=== PATIENT | female | born 1965 | race Caucasian/White ===

== ENCOUNTER 2023-05-12 20:21 | Inpatient (IN) | payer MEDICARE, OTHER ==
[~2023-05-12] VITALS: Ht 160 cm; Wt 97.0 kg
[2023-05-12] MEDS ORDERED: ONDANSETRON 4 MG/2 ML (SDV) Z0FRAN IVP ONE ×2 (21:00→22:30)
[2023-05-12] MEDS ORDERED: NS IV 1000 ML 1,000 ML IV SCH (21:00)
[2023-05-12] MEDS ORDERED: CEFEPIME INJECTION 1,000 MG in NS (IVPB) 50 ML 50 ML IV ONE (21:00)
--- NOTE | 2023-05-12 21:00 | ED General ---
General Stated Complaint: BACK, HIP AND LEG PAIN LEFT SIDE Source of Information: Patient History of Present Illness Date Seen by Provider: May 12, 2023 Time Seen by Provider: 20:45 Initial Comments PT ARRIVES VIA POV FROM HOME PT WITH MULTIPLE COMPLAINTS PT FELL ON Sunday05/09/23, LANDING ON HER LEFT HIP AND BUTTOCK AREA--SHE MISSED A STEP AND FELL TO HER LEFT AND LANDED ON HER LEFT HIP/BUTTOCK AREA. SHE CONTINUES TO HAVE PAIN IN HER LEFT HIP, BUT IS ABLE TO WALK ON SUNDAY, SHE BEGAN HAVING NAUSEA/VOMITING/DIARRHEA--VOMITED X 2 YESTERDAY, NONE TODAY. DIARRHEA X 3 YESTERDAY, NONE TODAY. NO HEMATEMESIS OR COFFEE GROUND EMESIS. NO BLACK/BLOODY/TARRY STOOLS YESTERDAY, SHE BEGAN HAVING LOW ABDOMINAL PAIN RADIATING TO BOTH HIPS AND AROUND BOTH SIDES TO HER LOW BACK SHE DENIES ANY URINARY SYMPTOMS SHE DENIES ANY FEVER/SWEATS/CHILLS SHE HAS NOT TAKEN ANYTHING FOR PAIN SHE HAS NOT TAKEN ANY OF HER MEDICATIONS TODAY--STATES SHE "JUST DIDN'T" PT IS DIABETIC ON METFORMIN, HAS HTN, HYPOTHYROIDISM, PERIPHERAL NEUROPATHY, ASTHMA SHE HAS HISTORY OF THYROID CANCER AND MULTIPLE MYELOMA--BOTH DX AROUND THE SAME TIME IN 2016/2017--SHE HAD SURGERY, RADIATION AND CHEMO FOR BOTH. SHE IS NOT CURRENTLY RECEIVING ANY CANCER TREATMENT. SHE IS A FORMER SMOKER, FORMER ALCOHOLIC, DENIES DRUG USE PT JUST MOVED HERE THIS WEEK FROM [place] Allergies and Home Medications Allergies Coded Allergies: Penicillins (Verified Allergy, Unknown, 05/12/23) Patient Home Medication List Home Medication List Reviewed: Yes Review of Systems Review of Systems Constitutional: malaise EENTM: no symptoms reported Respiratory: no symptoms reported; No cough, No short of breath Cardiovascular: no symptoms reported Gastrointestinal: see HPI, abdominal pain, diarrhea, nausea, vomiting Genitourinary: no symptoms reported Musculoskeletal: see HPI, back pain, other (LEFT HIP PAIN ) Skin: no symptoms reported Psychiatric/Neurological: No Symptoms Reported Hematologic/Lymphatic: No Symptoms Reported Immunological/Allergic: no symptoms reported Past Cslkzti-Yvcdsc-Tetesj Hx Patient Social History Tobacco Use?: Yes Tobacco type used: Cigarettes Smoking Status: Former Smoker Substance use?: No Alcohol Use?: Yes Past Medical History Surgeries: Yes Adenoidectomy, Hysterectomy, Oophorectomy, Thyroidectomy, Tonsillectomy Respiratory: Yes Asthma Cardiac: Yes High Cholesterol, Hypertension Neurological: Yes Neuropathy 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 History: Hysterectomy Genitourinary: No Gastrointestinal: No Musculoskeletal: Yes (MULTIPLE MYELOMA) Endocrine: Yes (OBESITY; THYROID CANCER-NOW HYPOTHYROID) Hypothyroidsim, Diabetes, Non-Insulin dep HEENT: Yes (S/P TONSILLECTOMY) Cancer: Yes (MULTIPLE MYELOMA) Thyroid Did You Recieve Any Treatments: Yes What Type of Treatment Did You: Chemotherapy, Radiation, Surgical Intervention MULTIPLE MYLEOMA AND THYROID CANCER DX AT SAME TIME IN 2016/2017 SHE HAS HAD THYROIDECTOMY AND RIGHT 6TH RIB RESECTION SHE HAS HAD RADIATION AND CHEMO FOR BOTH Psychosocial: No Integumentary: No Blood Disorders: No Family Medical History SOCIAL HISTORY: -SMOKED 1 1/2 PPD, QUIT AGE 24 -[facility]--USED TO DRINK 1/2 GALLON A DAY, NOW "OCCASIONALLY" DRINKS -DRUGS--DENIES PAST SURGICAL HISTORY: -HYSTERECTOMY / BILATERAL SALPINGO-OOPHORECTOMY -THYROIDECTOMY -RIGHT 6TH RIB RESECTION -COLONOSCOPY 2017 -TONSILLECTOMY / ADENOIDECTOMY Physical Exam Vital Signs Vital Signs - First Documented 05/12/23 21:02 Temp 38.3 Pulse 113 Resp 18 B/P (MAP) 169/85 (113) Capillary Refill : Height, Weight, BMI Height: '" Weight: lbs. oz. kg; BMI Method: General Appearance: No Apparent Distress, WD/WN HEENT: PERRL/EOMI Neck: Normal Inspection Respiratory: Normal Breath Sounds, No Accessory Muscle Use, No Respiratory Distress Cardiovascular: Regular Rate, Rhythm, No Edema, No JVD, No Murmur, Normal Peripheral Pulses Gastrointestinal: Normal Bowel Sounds, Soft, Tenderness (SUPRAPUBIC TENDERNESS) Back: No CVA Tenderness, Other (DIFFUSE LOWER BACK TENDERNESS) Extremity: Normal Capillary Refill, No Calf Tenderness, No Pedal Edema, Other (LEFT HIP TENDERNESS AND BRUISING) Neurologic/Psychiatric: Alert, Oriented x3, No Motor/Sensory Deficits, Normal 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, 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 as 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 Skin: Normal Color, Warm/Dry Focused Exam Sepsis Stage: Sepsis Possible Source: GI Tract/Intra-Abdominal Lactate Level 05/12/23 20:54: Lactic Acid Level 2.00 Time of Focused Exam: 22:40 Respiratory: Normal Breath Sounds, No Accessory Muscle Use, No Respiratory Distress Cardiovascular: Regular Rate, Rhythm, No Murmur Capillary Refill: Less Than 3 Seconds Skin: normal color, warm/dry Lactic Acid Level Laboratory Tests Test 05/12/23 20:54 Lactic Acid Level 2.00 MMOL/L (0.50-2.00) Within 3hrs of presentation: Admin fluids, Admin ABX, Blood cultures prior to ABX's, Focus exam, Lactate level Progress/Results/Core Measures Suspected Sepsis SIRS Temperature: Pulse: Respiratory Rate: Laboratory Tests 05/12/23 20:54: White Blood Count 13.7H Blood Pressure / Mean: 05/12/23 20:54: Lactic Acid Level 2.00 Laboratory Tests 05/12/23 20:54: Creatinine 1.09, INR Comment 0.9, Platelet Count 250, Total Bilirubin 0.4 Results/Orders Lab Results Laboratory Tests Test 05/12/23 20:54 05/12/23 20:57 05/12/23 21:09 Range/Units White Blood Count 13.7 H 4.3-11.0 10^3/uL Red Blood Count 4.59 3.80-5.11 10^6/uL Hemoglobin 12.9 11.5-16.0 g/dL Hematocrit 40 35-52 % Mean Corpuscular Volume 87 80-99 fL Mean Corpuscular Hemoglobin 28 25-34 pg Mean Corpuscular Hemoglobin Concent 33 32-36 g/dL Red Cell Distribution Width 12.9 10.0-14.5 % Platelet Count 250 130-400 10^3/uL Mean Platelet Volume 11.4 9.0-12.2 fL Immature Granulocyte % (Auto) 0 % Neutrophils (%) (Auto) 73 42-75 % Lymphocytes (%) (Auto) 16 12-44 % Monocytes (%) (Auto) 8 0-12 % Eosinophils (%) (Auto) 2 0-10 % Basophils (%) (Auto) 1 0-10 % Neutrophils # (Auto) 10.0 H 1.8-7.8 10^3/uL Lymphocytes # (Auto) 2.2 1.0-4.0 10^3/uL Monocytes # (Auto) 1.2 H 0.0-1.0 10^3/uL Eosinophils # (Auto) 0.2 0.0-0.3 10^3/uL Basophils # (Auto) 0.1 0.0-0.1 10^3/uL Immature Granulocyte # (Auto) 0.1 0.0-0.1 10^3/uL Erythrocyte Sedimentation Rate 25 0-30 MM/HR Prothrombin Time 12.8 12.2-14.7 SEC INR Comment 0.9 0.8-1.4 Activated Partial Thromboplast Time 28 24-35 SEC Sodium Level 134 L 135-145 MMOL/L Potassium Level 3.9 3.6-5.0 MMOL/L Chloride Level 100 98-107 MMOL/L Carbon Dioxide Level 22 21-32 MMOL/L Anion Gap 12 5-14 MMOL/L Blood Urea Nitrogen 10 7-18 MG/DL Creatinine 1.09 0.60-1.30 MG/DL Estimat Glomerular Filtration Rate 59 BUN/Creatinine Ratio 9 Glucose Level 222 H 70-105 MG/DL Lactic Acid Level 2.00 0.50-2.00 MMOL/L Calcium Level 9.3 8.5-10.1 MG/DL Corrected Calcium 9.1 8.5-10.1 MG/DL Magnesium Level 1.4 L 1.6-2.4 MG/DL Total Bilirubin 0.4 0.1-1.0 MG/DL Aspartate Amino Transf (AST/SGOT) 18 5-34 U/L Alanine Aminotransferase (ALT/SGPT) 27 0-55 U/L Alkaline Phosphatase 62 40-136 U/L Total Creatine Kinase 109 29-168 U/L Creatine Kinase MB 1.1 <6.6 NG/ML Myoglobin 27.7 10.0-92.0 NG/ML Troponin I < 0.028 <0.028 NG/ML C-Reactive Protein High Sensitivity 4.99 H 0.00-0.50 MG/DL Total Protein 7.6 6.4-8.2 GM/DL Albumin 4.3 3.2-4.5 GM/DL Amylase Level 37 25-125 U/L Lipase 37 8-78 U/L Beta-Hydroxybutyrate (Chem panel) 0.08 0.00-0.27 MMOL/L Serum Alcohol < 10 <10 MG/DL Influenza Type A (RT-PCR) Not Detected Not Detecte Influenza Type B (RT-PCR) Not Detected Not Detecte SARS-CoV-2 RNA (RT-PCR) Not Detected Not Detecte Urine Color YELLOW Urine Clarity CLEAR Urine pH 6.0 5-9 Urine Specific [place] >=1.030 1.016-1.022 Urine Protein NEGATIVE NEGATIVE Urine Glucose (UA) TRACE H NEGATIVE Urine Ketones TRACE H NEGATIVE Urine Nitrite NEGATIVE NEGATIVE Urine Bilirubin NEGATIVE NEGATIVE Urine Urobilinogen 0.2 < = 1.0 MG/DL Urine Leukocyte Esterase NEGATIVE NEGATIVE Urine RBC (Auto) TRACE-I H NEGATIVE Urine RBC NONE /HPF Urine WBC 2-5 /HPF Urine Squamous Epithelial Cells 2-5 /HPF Urine Crystals NONE /LPF Urine Bacteria MODERATE H /HPF Urine Casts NONE /LPF Urine Mucus SMALL H /LPF Urine Culture Indicated CULTURE PENDING Urine Opiates Screen POSITIVE H NEGATIVE Urine Oxycodone Screen NEGATIVE NEGATIVE Urine Methadone Screen NEGATIVE NEGATIVE Urine Propoxyphene Screen NEGATIVE NEGATIVE Urine Barbiturates Screen NEGATIVE NEGATIVE Ur Tricyclic Antidepressants Screen NEGATIVE NEGATIVE Urine Phencyclidine Screen NEGATIVE NEGATIVE Urine Amphetamines Screen NEGATIVE NEGATIVE Urine Methamphetamines Screen NEGATIVE NEGATIVE Urine Benzodiazepines Screen NEGATIVE NEGATIVE Urine Cocaine Screen NEGATIVE NEGATIVE Urine Cannabinoids Screen NEGATIVE NEGATIVE My Orders Orders - SUMAN TURNER DO Ed Iv/Invasive Line Start (05/12/23 20:47) Ekg Tracing (05/12/23 20:47) O2 (05/12/23 20:47) Monitor-Rhythm Ecg Trace Only (05/12/23 20:47) Alcohol (05/12/23 20:47) Amylase (05/12/23 20:47) Cbc With Automated Diff (05/12/23 20:47) Comprehensive Metabolic Panel (05/12/23 20:47) Creatine Kinase (05/12/23 20:47) Creatine Kinase Mb (05/12/23 20:47) Hs C Reactive Protein (05/12/23 20:47) Drug Screen Stat (Urine) (05/12/23 20:47) Lactic Acid Analyzer (05/12/23 20:47) Lipase (05/12/23 20:47) Magnesium (05/12/23 20:47) Protime With Inr (05/12/23 20:47) Partial Thromboplastin Time (05/12/23 20:47) Ua Culture If Indicated (05/12/23 20:47) Erythrocyte Sedimentation Rate (05/12/23 20:47) Myoglobin Serum (05/12/23 20:47) Troponin I [place] (05/12/23 20:47) Chest 1 View, Ap/Pa Only (05/12/23 20:47) Pelvis/[place] Hips 5> Views (05/12/23 20:47) Blood Culture (05/12/23 20:47) Sputum Culture (05/12/23 20:47) Urine Culture (05/12/23 20:47) Ed Iv/Invasive Line Start (05/12/23 20:47) Ed Iv/Invasive Line Start (05/12/23 20:47) Vital Signs Adult Sepsis Patie Q15M (05/12/23 20:47) O2 (05/12/23 20:47) Remove Rings In Anticipation O (05/12/23 20:47) Covid 19 Inhouse Test (05/12/23 20:47) Cefepime Injection (Cefepime Injection) (05/12/23 21:00) Ed Iv/Invasive Line Start (05/12/23 20:47) Ns Iv 1000 Ml (Sodium Chloride 0.9%) (05/12/23 21:00) Ondansetron Injection (Zofran Injectio (05/12/23 21:00) Influenza A And B By Pcr (05/12/23 20:47) Ct Natalia Chest/Noang Abd-Pelv W (05/12/23 21:27) Ct Cerv/Thoracic/Lumbar Wo (05/12/23 21:27) Iohexol Injection (Omnipaque 350 Mg/Ml 1 (05/12/23 21:45) Received Contrast (Hold Metformin- Contr (05/12/23 21:45) Ns (Ivpb) 100 Ml (Sodium Chloride 0.9% 1 (05/12/23 21:45) Ketorolac Injection (Toradol Injection) (05/12/23 22:30) Ondansetron Injection (Zofran Injectio (05/12/23 22:30) Beta Hydroxybutyrate (05/12/23 22:51) Hemoglobin A1c (05/12/23 22:51) Metronidazole 500mg/100ml Ivpb (Flagyl 5 (05/12/23 23:00) Acetaminophen Tablet (Acetaminophen Ta (05/12/23 23:00) Medications Given in ED Current Medications Medications Dose Ordered Sig/Ashwin Route Start Time Stop Time Status Last Admin Dose Admin Acetaminophen 1,000 mg ONCE ONCE PO 05/12/23 23:00 05/12/23 23:01 DC 05/12/23 23:14 1,000 MG Cefepime HCl 1000 mg/Sodium Chloride 50 ml @ 100 mls/hr ONCE ONCE IV 05/12/23 21:00 05/12/23 21:29 DC 05/12/23 22:01 100 MLS/HR Iohexol 100 ml ONCE ONCE IV 05/12/23 21:45 05/12/23 21:46 DC 05/12/23 21:48 77 ML Ketorolac Tromethamine 30 mg ONCE ONCE IVP 05/12/23 22:30 05/12/23 22:31 DC 05/12/23 22:33 30 MG Metronidazole 100 ml @ 100 mls/hr ONCE ONCE IV 05/12/23 23:00 05/12/23 23:59 DC 05/12/23 23:14 100 MLS/HR Ondansetron HCl 4 mg ONCE ONCE IVP 05/12/23 21:00 05/12/23 21:01 DC 05/12/23 20:57 4 MG Ondansetron HCl 4 mg ONCE ONCE IVP 05/12/23 22:30 05/12/23 22:31 DC 05/12/23 22:34 4 MG Sodium Chloride 100 ml ONCE ONCE IV 05/12/23 21:45 05/12/23 21:46 DC 05/12/23 21:48 100 ML Vital Signs/I&O 05/12/23 21:02 Temp 38.3 Pulse 113 Resp 18 B/P (MAP) 169/85 (113) 05/13/23 00:00 Intake Total 33 ml Balance 33 ml Capillary Refill : Progress Note : Progress Note VITALS ON ARRIVAL: TEMP 38.3, HR 113, RR 18, BP 169/85, O2 SAT 97% ON ROOM AIR SEPSIS PROTOCOL INITIATED GIVEN: -IV FLUIDS -ANTIBIOTICS-CEFEPIME + FLAGYL -ZOFRAN -TORADOL -TYLENOL SYMPTOMS IMPROVED AT TIME OF ADMIT. PAIN AND NAUSEA IS BETTER. VITALS STABLE PERTINENT LABS: -CBC WITH WBC 13.8, HGB/HCT AND PLT NORMAL -CMP WTH NA 134, BUN 10, CR 1.09, GLU 222, MG 1.4. LFT'S NORMAL. AMYLASE/LIPASE NORMAL -TROPONIN NEGATIVE -LACTIC ACID 2.0 -CRP 4.91, SED RATE 25 -BETA HYDROXYBUTYRATE 0.08 -UA WITH MODERATE BACTERIA, TRACE GLUCOSE, TRACE KETONES -COVID/FLU NEGATIVE EKG UNREMARKABLE XRAYS AND CT SCANS DO NOT SHOW ANY EVIDENCE OF ACUTE TRAUMATIC INJURY FROM HER FALL CT SCAN DOES SHOW ACUTE DIVERTICULITIS WITHOUT PERFORATION. PT DENIES HISTORY OF PRIOR EPISODES OF DIVERTICULITIS. DISCUSSED TEST RESULTS, NEED FOR ADMIT AND PT AGREES TO PLAN. ECG Initial ECG Impression Date: May 12, 2023 Initial ECG Impression Time: 20:56 Initial ECG Rate: 102 Initial ECG Rhythm: Normal Sinus Initial ECG Intervals: Normal Initial ECG Impression: Normal Initial ECG Comparisson: No Previous ECG Available Comment INTERPRETED BY ME Diagnostic Imaging Comments ALL PER RADIOLOGIST REPORTS AT 2240 CXR-- FINDINGS: The lung volumes are normal. No focal consolidation is seen. No large pleural effusion or pneumothorax is seen. The cardiomediastinal silhouette is normal in size and contour. No acute osseous abnormality is seen. There are old right-sided rib fractures. IMPRESSION: No acute pulmonary abnormality seen. XRAYS PELVIS AND BILATERAL HIPS FINDINGS: No acute fracture is seen in the pelvis or bilateral hips. Alignment appears normal. Joint spaces are preserved. Sacroiliac joints are patent. IMPRESSION: No acute osseous abnormality is seen in the pelvis or bilateral hips CT CERVICAL/THORACIC/LUMBAR SPINE- FINDINGS: CERVICAL SPINE: There is straightening of the cervical lordosis with no spondylolisthesis. There are mild multilevel degenerative changes in the cervical spine. No acute fracture is seen. No bony fragments or hyperdense fluid collections are seen in the spinal canal. Surrounding soft tissues demonstrate no acute abnormality. THORACIC SPINE: There is mildly exaggerated kyphosis in the thoracic spine. Vertebral body heights are preserved. There are moderate degenerative changes at multiple levels. No acute fracture is seen. No bony fragments or hyperdense fluid collections are seen. LUMBAR SPINE: Alignment of the lumbar spine appears normal with no spondylolisthesis. There are moderate degenerative changes at L4-L5 and L5-S1. Vertebral body heights are preserved. No acute fracture is seen. There are disc bulges in the lower lumbar spine with likely spinal canal stenosis at L3-L4 and L4-L5. There is foraminal stenosis at L5-S1 bilaterally and L4-L5 on the right. IMPRESSION: Degenerative changes in the cervical, thoracic, and lumbar spine with no acute fracture seen. CT CHEST ANGIOGRAM / ABDOMEN-PELVIS--FINDINGS: CTA CHEST: The pulmonary arteries are diagnostic to the segmental level. No filling defects are seen to indicate a pulmonary embolus. There is motion artifact which obscures some anatomy. The heart is normal in size. There is no pericardial effusion. No mediastinal adenopathy is seen. There is no axillary adenopathy. The aorta is normal in caliber. There is no pleural effusion or pneumothorax. There is dependent atelectasis in the right lung. No central endobronchial lesions are seen. There is partial resection of the right 6th rib. There are degenerative changes in the spine. No acute osseous abnormality is seen. CT ABDOMEN AND PELVIS: The liver has fatty infiltration and appears mildly large but no focal lesion is seen. The spleen appears normal. The pancreas is unremarkable. The adrenal glands appear normal. The right kidney has mild hydronephrosis but no obstructing stones are seen. Enhancement of the kidneys appears normal bilaterally. The bowel loops are nondistended without obstruction. The appendix is normal. There is diverticulosis of the descending and sigmoid colon. There is diverticulitis at the sigmoid colon with wall thickening and surrounding edema. No findings of perforation are seen. No free fluid or free air is seen. The aorta is normal in caliber. There is no lymphadenopathy. No acute osseous abnormality is seen. IMPRESSION: 1. Acute diverticulitis of the sigmoid colon without findings of perforation. 2. No pulmonary embolus. No acute abnormality is seen in the chest. 3. Hepatic steatosis. Reviewed: Reviewed by Tn Departure Communication (Admissions) [id number]--SPOKE WITH DR. LOPEZ, HOSPITALIST, ACCEPTS PT FOR ADMIT Impression Primary Impression: Sepsis Additional Impressions: Diverticulitis UTI (urinary tract infection) Fall from standing Contusion of left hip Back pain Non-insulin dependent diabetes mellitus HTN (hypertension) Hx of thyroid cancer Hx of multiple myeloma Disposition: ADMITTED INPATIENT Condition: Stable Admissions Decision to Admit Reason: Admit from ER (General) Decision to Admit/Date: May 12, 2023 Time/Decision to Admit Time: 22:50 Departure-Patient Inst. Referrals: NO,LOCAL PHYSICIAN (PCP/Family) Primary Care Physician SUMAN TURNER DO May 12, 2023 21:00
[2023-05-12 21:04] LABS: BASOPHILS # (AUTO) 0.1 10^3/uL (0.0-0.1); BASOPHILS % (AUTO) 1 % (0-10); EOSINOPHILS # (AUTO) 0.2 10^3/uL (0.0-0.3); EOSINOPHILS % (AUTO) 2 % (0-10); HEMATOCRIT 40 % (35-52); HEMOGLOBIN 12.9 g/dL (11.5-16.0); LYMPHOCYTES # (AUTO) 2.2 10^3/uL (1.0-4.0); LYMPHOCYTES % (AUTO) 16 % (12-44); MEAN CORPUSCULAR HEMOGLOBIN 28 pg (25-34); MEAN CORPUSCULAR HGB CONC 33 g/dL (32-36); MEAN CORPUSCULAR VOLUME 87 fL (80-99); MEAN PLATELET VOLUME 11.4 fL (9.0-12.2); MONOCYTES # (AUTO) 1.2 10^3/uL (0.0-1.0); MONOCYTES % (AUTO) 8 % (0-12); NEUTROPHILS % (AUTO) 73 % (42-75); PLATELET COUNT 250 10^3/uL (130-400); WHITE BLOOD COUNT 13.7 10^3/uL (4.3-11.0)
[2023-05-12 21:15] LABS: BILIRUBIN,URINE NEGATIVE (NEGATIVE); CLARITY,URINE CLEAR; COLOR,URINE YELLOW; GLUCOSE, URINE (UA) TRACE (NEGATIVE); KETONES,URINE TRACE (NEGATIVE); LEUKOCYTE ESTERASE ,URINE NEGATIVE (NEGATIVE); NITRITE,URINE NEGATIVE (NEGATIVE); PROTEIN,URINE NEGATIVE (NEGATIVE)
[2023-05-12 21:18] LABS: INR 0.9 (0.8-1.4); PROTHROMBIN TIME PATIENT 12.8 SEC (12.2-14.7)
[2023-05-12 21:25] LABS: ALANINE AMINOTRANSFERASE 27 U/L (0-55); ALBUMIN 4.3 GM/DL (3.2-4.5); ALKALINE PHOSPHATASE 62 U/L (40-136); AMYLASE 37 U/L (25-125); BILIRUBIN,TOTAL 0.4 MG/DL (0.1-1.0); BUN/CREATININE RATIO 9; CALCIUM 9.3 MG/DL (8.5-10.1); CARBON DIOXIDE 22 MMOL/L (21-32); CHLORIDE 100 MMOL/L (98-107); CREATINE KINASE 109 U/L (29-168); CREATININE SERUM 1.09 MG/DL (0.60-1.30); GFR ESTIMATED 59; GLUCOSE 222 MG/DL (70-105); LIPASE 37 U/L (8-78); MAGNESIUM 1.4 MG/DL (1.6-2.4); POTASSIUM 3.9 MMOL/L (3.6-5.0); SODIUM 134 MMOL/L (135-145); TOTAL PROTEIN 7.6 GM/DL (6.4-8.2)
[2023-05-12 21:30] LABS: AMPHETAMINE SCREEN, URINE NEGATIVE (NEGATIVE); BARBITURATE SCREEN URINE NEGATIVE (NEGATIVE); BENZODIAZEPINES SCREEN URINE NEGATIVE (NEGATIVE); CANNABINOID SCREEN, URINE NEGATIVE (NEGATIVE); COCAINE SCREEN URINE NEGATIVE (NEGATIVE); METHADONE STAT NEGATIVE (NEGATIVE); OPIATE SCREEN URINE POSITIVE (NEGATIVE); OXYCODONE STAT NEGATIVE (NEGATIVE); PROPOXYPHENE STAT NEGATIVE (NEGATIVE); TRICYCLIC ANTIDEPRESSANTS SCRE NEGATIVE (NEGATIVE)
[2023-05-12 21:31] LABS: ERYTHROCYTE SEDIMENTATION RATE 25 MM/HR (0-30)
[2023-05-12 21:32] LABS: CREATINE KINASE MB 1.1 NG/ML (<6.6)
[2023-05-12 21:38] LABS: BACTERIA,URINE MODERATE /HPF
--- NOTE | 2023-05-12 21:39 | Diagnostic Imaging Report ---
PATIENT HISTORY: FEVER, DYSPNEA. TECHNIQUE: Single frontal view of the chest. COMPARISON: None. FINDINGS: The lung volumes are normal. No focal consolidation is seen. No large pleural effusion or pneumothorax is seen. The cardiomediastinal silhouette is normal in size and contour. No acute osseous abnormality is seen. There are old right-sided rib fractures. IMPRESSION: No acute pulmonary abnormality seen. Dictated by: Dictated on workstation # [id number]
[2023-05-12] MEDS ORDERED: HOLD METFORMIN - RECEIVED CONTRAST 20 ML VIAL IV SCH (21:45)
[2023-05-12] MEDS ORDERED: IOHEXOL 350 MG/ML 100 ML (OMNIPAQUE 350) VIAL IV ONE (21:45)
[2023-05-12] MEDS ORDERED: NS 100 ML (IVPB) BAG IV ONE (21:45)
--- NOTE | 2023-05-12 21:55 | Diagnostic Imaging Report ---
HISTORY: Pelvic pain. COMPARISON: None. TECHNIQUE: Frontal view of the pelvis. Frontal and lateral views of the bilateral hips. FINDINGS: No acute fracture is seen in the pelvis or bilateral hips. Alignment appears normal. Joint spaces are preserved. Sacroiliac joints are patent. IMPRESSION: No acute osseous abnormality is seen in the pelvis or bilateral hips. Dictated by: Dictated on workstation # [id number]
--- NOTE | 2023-05-12 22:18 | Diagnostic Imaging Report ---
HISTORY: Fall with neck, mid back, low back pain, dyspnea, abdominal pain, nausea, vomiting and diarrhea, fever, and hip pain. TECHNIQUE: Axial noncontrast CT of the cervical, thoracic, and lumbar spine was performed with sagittal and coronal reformats. All CT scans use one or more of the following dose optimizing techniques: automated exposure control, MA and/or KvP adjustment based on patient size and exam type or iterative reconstruction. COMPARISON: None. FINDINGS: CERVICAL SPINE: There is straightening of the cervical lordosis with no spondylolisthesis. There are mild multilevel degenerative changes in the cervical spine. No acute fracture is seen. No bony fragments or hyperdense fluid collections are seen in the spinal canal. Surrounding soft tissues demonstrate no acute abnormality. THORACIC SPINE: There is mildly exaggerated kyphosis in the thoracic spine. Vertebral body heights are preserved. There are moderate degenerative changes at multiple levels. No acute fracture is seen. No bony fragments or hyperdense fluid collections are seen. LUMBAR SPINE: Alignment of the lumbar spine appears normal with no spondylolisthesis. There are moderate degenerative changes at L4-L5 and L5-S1. Vertebral body heights are preserved. No acute fracture is seen. There are disc bulges in the lower lumbar spine with likely spinal canal stenosis at L3-L4 and L4-L5. There is foraminal stenosis at L5-S1 bilaterally and L4-L5 on the right. IMPRESSION: Degenerative changes in the cervical, thoracic, and lumbar spine with no acute fracture seen. Dictated by: Dictated on workstation # [id number]
--- NOTE | 2023-05-12 22:24 | Diagnostic Imaging Report ---
INDICATION: Dyspnea, abd pain, N/V/D, and fever. Fall with back and hip pain. TECHNIQUE: CTA chest, abdomen, and pelvis. TECHNIQUE: Thin axial sections through the chest, abdomen, and pelvis were obtained following intravenous contrast bolus. Multiplanar MIP images were reconstructed and reviewed. All CT scans use one or more of the following dose optimizing techniques: automated exposure control, MA and/or KvP adjustment based on patient size and exam type or iterative reconstruction. COMPARISON: None. FINDINGS: CTA CHEST: The pulmonary arteries are diagnostic to the segmental level. No filling defects are seen to indicate a pulmonary embolus. There is motion artifact which obscures some anatomy. The heart is normal in size. There is no pericardial effusion. No mediastinal adenopathy is seen. There is no axillary adenopathy. The aorta is normal in caliber. There is no pleural effusion or pneumothorax. There is dependent atelectasis in the right lung. No central endobronchial lesions are seen. There is partial resection of the right 6th rib. There are degenerative changes in the spine. No acute osseous abnormality is seen. CT ABDOMEN AND PELVIS: The liver has fatty infiltration and appears mildly large but no focal lesion is seen. The spleen appears normal. The pancreas is unremarkable. The adrenal glands appear normal. The right kidney has mild hydronephrosis but no obstructing stones are seen. Enhancement of the kidneys appears normal bilaterally. The bowel loops are nondistended without obstruction. The appendix is normal. There is diverticulosis of the descending and sigmoid colon. There is diverticulitis at the sigmoid colon with wall thickening and surrounding edema. No findings of perforation are seen. No free fluid or free air is seen. The aorta is normal in caliber. There is no lymphadenopathy. No acute osseous abnormality is seen. IMPRESSION: 1. Acute diverticulitis of the sigmoid colon without findings of perforation. 2. No pulmonary embolus. No acute abnormality is seen in the chest. 3. Hepatic steatosis. Dictated by: Dictated on workstation # [id number]
[2023-05-12] MEDS ORDERED: KETOROLAC 30 MG/ML VIAL IVP ONE (22:30)
[2023-05-12] MEDS ORDERED: metroNIDAZOLE 500MG/100ML IVPB 100 ML IV ONE (23:00)
[2023-05-12] MEDS ORDERED: ACETAMINOPHEN 500 MG TABLET PO ONE (23:00)
[2023-05-13] VITALS (7 sets, daily range): BP systolic 111–136; BP diastolic 58–80
[2023-05-13] MEDS ORDERED: ONDANSETRON 4 MG/2 ML (SDV) Z0FRAN IV PRN (00:45)
[2023-05-13] MEDS ORDERED: fentaNYL INJ 100 MCG/2 ML AMP IV PRN (00:45)
[2023-05-13] MEDS: MAGNESIUM 1 GM/100 ML IVPB 100 ML IV SCH ×2 (01:03→02:05)
[2023-05-13] MEDS: NS IV 1000 ML 1,000 ML IV SCH ×4 (01:03→16:24)
[2023-05-13] MEDS: inSUlin ASPART (NovoLOG) 1 UNIT/0.01 ML (CHARGE PER UNIT) SC SCH ×4 (05:39→20:23)
[2023-05-13 05:48] LABS: BASOPHILS # (AUTO) 0.1 10^3/uL (0.0-0.1); BASOPHILS % (AUTO) 1 % (0-10); EOSINOPHILS # (AUTO) 0.2 10^3/uL (0.0-0.3); EOSINOPHILS % (AUTO) 1 % (0-10); HEMATOCRIT 35 % (35-52); HEMOGLOBIN 11.1 g/dL (11.5-16.0); LYMPHOCYTES # (AUTO) 2.2 10^3/uL (1.0-4.0); LYMPHOCYTES % (AUTO) 20 % (12-44); MEAN CORPUSCULAR HEMOGLOBIN 28 pg (25-34); MEAN CORPUSCULAR HGB CONC 32 g/dL (32-36); MEAN CORPUSCULAR VOLUME 87 fL (80-99); MONOCYTES # (AUTO) 1.2 10^3/uL (0.0-1.0); MONOCYTES % (AUTO) 11 % (0-12); NEUTROPHILS # (AUTO) 7.5 10^3/uL (1.8-7.8); NEUTROPHILS % (AUTO) 67 % (42-75); PLATELET COUNT 213 10^3/uL (130-400); WHITE BLOOD COUNT 11.1 10^3/uL (4.3-11.0)
[2023-05-13 05:58] LABS: POTASSIUM 3.6 MMOL/L (3.6-5.0)
[2023-05-13 05:59] LABS: CALCIUM 8.4 MG/DL (8.5-10.1)
[2023-05-13] MEDS ORDERED: CEFEPIME 1,000 MG/NS 50 ML IVPB IV SCH ×2 (06:00)
[2023-05-13 06:04] LABS: CREATININE SERUM 0.79 MG/DL (0.60-1.30)
[2023-05-13 06:06] LABS: MAGNESIUM 2.1 MG/DL (1.6-2.4)
[2023-05-13] MEDS: metroNIDAZOLE 500 MG/100 ML IVPB (PRE-MIX) IV SCH ×2 (10:14→21:58)
[2023-05-13] MEDS ORDERED: LISI40TA9 PO (11:28)
[2023-05-13] MEDS ORDERED: GABA-486 PO (11:28)
[2023-05-13] MEDS ORDERED: METF-399 PO (11:28)
[2023-05-13] MEDS ORDERED: RT-ALBUINH INH (11:28)
[2023-05-13] MEDS ORDERED: LEVO150C4 PO (11:28)
[2023-05-13] MEDS: CEFEPIME 1,000 MG/NS 50 ML IVPB IV SCH ×4 (11:50→17:16)
--- NOTE | 2023-05-13 12:24 | History & Physical-Hospitalist ---
GREGG DOHERTY 05/13/23 1224: History of Present Illness HPI/Chief Complaint Abigail Enriquez is a 57 yo F with a history of non-insulin dependent Type II DM, HTN, hypothyroidism, thyroid cancer (2017), multiple myeloma (2017), asthma, former alcohol use disorder and former tobacco use who presented to the ED on 05/12 of N/V/D, abdominal pain, and bilateral hip pain (L>R). Her hip pain began after she missed a step and fell onto her left hip/buttock region. Her N/V/D started pm 05/10. On 05/11, she experienced vomiting x2 and diarrhea x3 and began to feel bilateral lower abdominal pain radiating to her hips and back. She denied bloody or "coffee ground" colored vomitus as well as black, bloody, or tarry stools. At the ED, she was found to have WBC of 13.7, temperature of 38.2, pulse of 113, blood pressure of 169/85, CRP of 4.91, and lactic acid of 2.00. CTA of the abdomen and pelvis demonstrated acute diverticulitis or the sigmoid without signs of perforation, free fluid or free air as well as hepatic steatosis. X-Ray of the pelvis was negative for fracture or other osseus abnormality. Spinal CT demonstrated degenerative changes without acute fracture. The patient was admitted Via [facility] for further management of acute diverticulitis of the sigmoid colon with sepsis. This morning, she reports slightly improvement of her lower adominal pain, reporting a 6/10 pain. She has had no upper abdominal pain and no nausea, vomiting, or diarrhea since admission. She states her last BM was at noon yesterday and was well formed without blood. She reports a robust appetite. She states that she experienced one episode of bloody stool "many years ago" and that she had a normal colonoscopy in 2017 in [place]. Her daughter, present at bedside, indicates there was no diverticulosis seen on this colonoscopy and that follow up was recommended in 10 years. The patients admits to a "few" episodes of bright red bloody vomit in her lifetime; she cannot recall how many years ago these occurred. She believes she had an normal EGD at the time of her colonoscopy in 2017. She reports unchanged left hip pain rated a 7-7/10. She denies chills, myalgia, shortness of breath and chest pain. Source: patient, family (daughter) Date Seen 05/13/23 Attending Physician No,Local Physician PCP Admitting Physician: Red Medel MD Attending Physician: Red Medel MD Referring Physician Date of Admission May 12, 2023 at 23:49 Home Medications & Allergies Home Medications Reviewed patient Home Medication Reconciliation performed by pharmacy medication reconciliations airplane technician and/or nursing. Patients Allergies have been reviewed. Allergies Allergies Coded Allergies Penicillins (Verified Allergy, Unknown, 05/12/23) Past Lqmroyb-Ybboxp-Evkgxd Hx Patient Social History Marrital Status: Employed/Student: retired Tobacco Use?: No Tobacco type used: Cigarettes Smoking Status: Former Smoker Substance use?: No Alcohol Use?: Yes Alcohol Frequency: Rarely Pt feels they are or have been: No Immunizations Up To Date Tetanus Booster (TDap): Unknown Current Status status: No Advance Directives: Yes Advance Directive Location: Home Communicates: Verbally Primary Language: Nicaraguan Preferred Spoken Language: Nicaraguan Is interpretation needed?: No Implanted or Applied Medical D: Other Past Medical History Surgeries: Adenoidectomy, Hysterectomy, Oophorectomy, Thyroidectomy, Tonsillectomy Asthma High Cholesterol, Hypertension Neuropathy [employer] History: Hysterectomy Hypothyroidsim, Diabetes, Non-Insulin dep Thyroid Did You Recieve Any Treatments: Yes What Type of Treatment Did You: Chemotherapy, Radiation, Surgical Intervention MULTIPLE MYLEOMA AND THYROID CANCER DX AT SAME TIME IN 2016/2017 SHE HAS HAD THYROIDECTOMY AND RIGHT 6TH RIB RESECTION SHE HAS HAD RADIATION AND CHEMO FOR BOTH Blood Disorders: No Family Medical History SOCIAL HISTORY: -SMOKED 1 1/2 PPD, QUIT AGE 24 -ETOH--USED TO DRINK 1/2 GALLON A DAY, NOW "OCCASIONALLY" DRINKS -DRUGS--DENIES PAST SURGICAL HISTORY: -HYSTERECTOMY / BILATERAL SALPINGO-OOPHORECTOMY -THYROIDECTOMY -RIGHT 6TH RIB RESECTION -COLONOSCOPY 2016 -TONSILLECTOMY / ADENOIDECTOMY Review of Systems Gastrointestinal: abdominal pain (lower quadrants bilaterally); No dysphagia, No hematemesis, No melena, No nausea, No vomiting Musculoskeletal: back pain, other (bilateral hip pain, L>R) Physical Exam Physical Exam Vital Signs Vital Signs - First Documented 05/12/23 05/13/23 21:02 00:10 Temp 38.3 Pulse 113 Resp 18 B/P (MAP) 169/85 (113) Pulse Ox 96 O2 Delivery Room Air Capillary Refill : Less Than 3 Seconds Height, Weight, BMI Height: '" Weight: lbs. oz. kg; 37.89 BMI Method: General Appearance: No Apparent Distress HEENT: PERRL/EOMI Neck: Non Tender, Supple Respiratory: Chest Non Tender, Lungs Clear, Normal Breath Sounds Cardiovascular: Regular Rate, Rhythm Gastrointestinal: Normal Bowel Sounds, Distended (lower quadrants bilaterally), Tenderness (lower quadrants bilaterally) Neurologic/Psychiatric: Alert, Other (could not name the current president and responded "either [place] or [place]" when asked to identify her current location) Skin: Normal Color, Warm/Dry Results Results/Procedures Labs Laboratory Tests 05/12/23 20:54 05/13/23 05:10 Patient resulted labs reviewed. Assessment/Plan Admission Diagnosis Diverticulitis of the sigmoid colon Sepsis Reason for Inpatient Admission: Diverticuluitis with sepsis Assessment and Plan Uncomplicated diverticulitis (sigmoid colon) Sepsis Abdominal pain - No known prior episodes of diverticulitis - Abdominopelvic CTA 05/12 negative for perforation or free air/fluid - Metronidazole 500 mg IV - Cefipime 1,000 mg IV - Fentanyl 50 mcg - [place] diet for today Bilateral hip pain (L > R) - Pelvic XR 05/12 negative for fracture or other osseus abnormalities - Pain control as above History of hematochezia History of alcohol use disorder - Patient believes she had a normal EGD in [place] in 2016 - Obtain medical records Non-insulin dependent Type II DM Peripheral neuropathy - Insulin aspart sliding scale "A" - Gabapentin 100 mg Hypothryoidism - Hx of thyroid cancer (2017) treated with chemo, surgery and radiation - Levothyroxine 150 mg - RED MEDEL MD 05/13/23 1327: History of Present Illness Time Seen by a Provider: 11:00 Review of Systems Constitutional: see HPI Assessment/Plan Admission Diagnosis Admission Status: Inpatient Order (span 2 midnights) Reason for Inpatient Admission: see below Assessment and Plan Patient admitted to the hospital secondary to sepsis from diverticulitis. She had a colonoscopy roughly 5 or 6 years ago and was not aware of any diverticulosis. She reports feeling about the same may be even a little bit worse today. Though she is hungry and would like to eat. We will continue with IV antibiotics but advance her diet. Continue home meds as appropriate. Supervisory-Addendum Brief Verification & Attestation Participated in pt care: history, MDM, physical Personally performed: exam, history, MDM, supervision of care Care discussed with: Medical Student Procedures: n/a Results interpretation: Verified all documentation Verification and Attestation of Medical Student E/M Service A medical student performed and documented this service in my presence. I reviewed and verified all information documented by the medical student and made modifications to such information, when appropriate. I personally performed the physical exam and medical decision making. Red Medel, May 13, 2023,13:26 GREGG DOHERTY May 13, 2023 12:24 RED MEDEL MD May 13, 2023 13:27
[2023-05-13] MEDS ORDERED: RT-ALBUTEROL HFA 8.5 GM INHALER IH PRN (12:30)
[2023-05-13] MEDS ORDERED: LEVOTHYROXINE 150 MCG (LEVOTHROID) TAB PO NR (13:00)
[2023-05-13] MEDS: ACETAMINOPHEN 500 MG TABLET PO PRN ×2 (15:12→20:22)
[2023-05-13] MEDS: GABAPENTIN 100 MG (NEURONTIN) CAP PO SCH (20:22)
[2023-05-13] MEDS: DOCUSATE SODIUM 100 MG CAPSULE PO SCH (21:10)
[2023-05-14] MEDS: CEFEPIME 1,000 MG/NS 50 ML IVPB IV SCH ×10 (01:15→23:46)
[2023-05-14] MEDS: NS IV 1000 ML 1,000 ML IV SCH ×5 (02:13→23:46)
[2023-05-14 03:39] VITALS: BP 119/69
[2023-05-14] MEDS: inSUlin ASPART (NovoLOG) 1 UNIT/0.01 ML (CHARGE PER UNIT) SC SCH ×4 (06:10→21:04)
[2023-05-14] MEDS: LEVOTHYROXINE 150 MCG (LEVOTHROID) TAB PO SCH (06:10)
[2023-05-14 07:31] VITALS: BP 136/74
[2023-05-14] MEDS: metroNIDAZOLE 500 MG/100 ML IVPB (PRE-MIX) IV SCH ×2 (08:55→20:53)
[2023-05-14] MEDS: DOCUSATE SODIUM 100 MG CAPSULE PO SCH ×2 (08:55→20:53)
[2023-05-14 11:40] VITALS: BP 134/79
--- NOTE | 2023-05-14 12:37 | Progress Note - Hospitalist ---
GREGG DOHERTY 05/14/23 1237: Subjective HPI/CC On Admission Abigail Enriquez is a 57 yo F with a history of non-insulin dependent Type II DM, HTN, hypothyroidism, thyroid cancer (2017), multiple myeloma (2017), asthma, former alcohol use disorder and former tobacco use who presented to the ED on 05/12 of N/V/D, abdominal pain, and bilateral hip pain (L>R). Her hip pain began after she missed a step and fell onto her left hip/buttock region. Her N/V/D started pm 05/10. On 05/11, she experienced vomiting x2 and diarrhea x3 and began to feel bilateral lower abdominal pain radiating to her hips and back. She denied bloody or "coffee ground" colored vomitus as well as black, bloody, or tarry stools. At the ED, she was found to have WBC of 13.7, temperature of 38.2, pulse of 113, blood pressure of 169/85, CRP of 4.91, and lactic acid of 2.00. CTA of the abdomen and pelvis demonstrated acute diverticulitis or the sigmoid without signs of perforation, free fluid or free air as well as hepatic steatosis. X-Ray of the pelvis was negative for fracture or other osseus abnormality. Spinal CT demonstrated degenerative changes without acute fracture. The patient was admitted Via [facility] [place] for further management of acute diverticulitis of the sigmoid colon with sepsis. This morning, she reports slightly improvement of her lower adominal pain, reporting a 6/10 pain. She has had no upper abdominal pain and no nausea, vomiting, or diarrhea since admission. She states her last BM was at noon yesterday and was well formed without blood. She reports a robust appetite. She states that she experienced one episode of bloody stool "many years ago" and that she had a normal colonoscopy in 2017 in [place]. Her daughter, present at bedside, indicates there was no diverticulosis seen on this colonoscopy and that follow up was recommended in 10 years. The patients admits to a "few" episodes of bright red bloody vomit in her lifetime; she cannot recall how many years ago these occurred. She believes she had an normal EGD at the time of her colonoscopy in 2017. She reports unchanged left hip pain rated a 7-7/10. She denies chills, myalgia, shortness of breath and chest pain. Subjective/Events-last exam Patient states that lower abdominal pain has improved and only intermittent, with positional changes. At this time, her left hip pain is resolved. She is tolerating oral diet well. She had one well formed, non-bloody bowel movement yesterday afternoon. She denies N/V/D, dysuria, urinary urgency, or pain otherwise. Focused Exam Lactate Level 05/12/23 20:54: Lactic Acid Level 2.00 Time of Focused Exam: 22:40 Objective Exam Vital Signs Vital Signs Date Time Temp Pulse Resp B/P (MAP) Pulse Ox O2 Delivery O2 Flow Rate FiO2 05/14/23 11:40 37.4 78 20 134/79 (97) 94 Room Air Capillary Refill : Less Than 3 Seconds General Appearance: No Apparent Distress HEENT: PERRL/EOMI Respiratory: Chest Non Tender, Lungs Clear, Normal Breath Sounds Cardiovascular: Regular Rate, Rhythm Gastrointestinal: Normal Bowel Sounds, Non Tender Neurologic/Psychiatric: Alert, Oriented x3 Skin: Normal Color, Warm/Dry Results/Procedures Lab Patient resulted labs reviewed. Assessment/Plan Assessment and Plan Assess & Plan/Chief Complaint Uncomplicated diverticulitis (sigmoid colon) Sepsis - resolved. Abdominal pain - No known prior episodes of diverticulitis - Abdominopelvic CTA 05/12 negative for perforation or free air/fluid - Metronidazole 500 mg IV - Cefipime 1,000 mg IV - Fentanyl 50 mcg - [place] diet for today Bilateral hip pain (L > R) - Pelvic XR 05/12 negative for fracture or other osseus abnormalities - Pain control as above History of hematochezia History of alcohol use disorder - Patient believes she had a normal EGD in [place] in 2016 - Obtain medical records Non-insulin dependent Type II DM Peripheral neuropathy - Insulin aspart sliding scale "A" - Gabapentin 100 mg Hypothryoidism - Hx of thyroid cancer (2017) treated with chemo, surgery and radiation - Levothyroxine 150 mg Will keep patient 1 more night as she still having some intermittent abdominal pain/discomfort. Otherwise, patient should be ready for discharge tomorrow as she is tolerating oral diet and WBC/vitals have normalized.JESSICA KATELYN M MD 05/14/232051: Assessment/Plan Assessment and Plan Assess & Plan/Chief Complaint Doing better today. Tolerating some oral intake. Still intermittant abd pain though. Continue abx. Hopefully DC home tomorrow. Supervisory-Addendum Brief Verification & Attestation Participated in pt care: history, MDM, physical Personally performed: exam, history, MDM, supervision of care Care discussed with: Medical Student Procedures: n/a Results interpretation: Verified all documentation Verification and Attestation of Medical Student E/M Service A medical student performed and documented this service in my presence. I revi ewed and verified all information documented by the medical student and made modifications to such information, when appropriate. I personally performed the physical exam and medical decision making. Red Medel, May 14, 2023,20:51 GREGG DOHERTY May 14, 2023 12:37 RED MEDEL MD May 14, 2023 20:52
[2023-05-14] MEDS ORDERED: LEVO150T6 PO (13:20)
[2023-05-14] MEDS ORDERED: ACET-2267 PO (13:21)
[2023-05-14 15:31] VITALS: BP 153/81
[2023-05-14] MEDS: ACETAMINOPHEN 500 MG TABLET PO PRN (17:24)
[2023-05-14] MEDS: GABAPENTIN 100 MG (NEURONTIN) CAP PO SCH (20:53)
[2023-05-14 20:58] VITALS: BP 152/71
[2023-05-14 23:29] VITALS: BP 143/79
[2023-05-15 03:32] VITALS: BP 127/78
[2023-05-15] MEDS: inSUlin ASPART (NovoLOG) 1 UNIT/0.01 ML (CHARGE PER UNIT) SC SCH ×2 (05:30→12:30)
[2023-05-15] MEDS: LEVOTHYROXINE 150 MCG (LEVOTHROID) TAB PO SCH (05:51)
[2023-05-15] MEDS: CEFEPIME 1,000 MG/NS 50 ML IVPB IV SCH ×4 (05:51→12:30)
[2023-05-15] MEDS: NS IV 1000 ML 1,000 ML IV SCH (07:23)
[2023-05-15 07:37] VITALS: BP 137/86
[2023-05-15] MEDS: DOCUSATE SODIUM 100 MG CAPSULE PO SCH (08:55)
[2023-05-15] MEDS: metroNIDAZOLE 500 MG/100 ML IVPB (PRE-MIX) IV SCH (08:56)
[2023-05-15] MEDS ORDERED: METR-145 PO (10:50)
[2023-05-15] MEDS ORDERED: CIPR-225 PO (10:50)
[2023-05-15] MEDS ORDERED: GLBR2.5T PO (10:50)
[2023-05-15 11:00] VITALS: BP 129/69
--- NOTE | 2023-05-15 16:56 | Discharge Summary ---
Discharge Summary Hospital Course Problems/Dx: (1) Diverticulitis Status: Acute (2) Sepsis Status: Acute (3) Non-insulin dependent diabetes mellitus Status: Acute Hospital Course Date of Admission: May 12, 2023 at 23:49 Admission Diagnosis : Sepsis due to diverticulitis Family Physician/Provider: Sarah Bone Physician Date of Discharge: 05/15/23 Discharge Diagnosis: Sepsis due to diverticulitis Hospital Course: Abigail Enriquez is a 57 year old female who was admitted with sepsis due to diverticulitis. She had a fall at home. She had been having nausea, vomiting, and diarrhea. She then developed abdominal pain. She had a CT which revealed acute sigmoid diverticulitis. There was no evidence of perforation or abscess. She was treated with IV fluids and antibiotics. Her symptoms improved. She was tolerating a diet. She was transitioned to oral antibiotics. She will follow up with surgery in about a month. She had a colonoscopy in 2017 in [place]. She does not have a PCP here yet. Her daughter is trying to set up an appointment to establish with Dr. Newby. She also has diabetes but had not been taking her Metformin due to intolerance. She was started on low dose Glyburide. She was discharged home in stable condition. Labs and Pending Lab Test: Laboratory Tests 05/14/23 20:55: Glucometer 173H 05/15/23 05:21: Glucometer 147H 05/15/23 10:00: Glucometer 176H Microbiology 05/12/23 Urine Culture - Final, Complete Escherichia coli 05/12/23 Blood Culture - Preliminary, Resulted No growth Home Meds Active Metronidazole 500 Mg Tablet 500 Mg PO TID 4 Days Cipro (Ciprofloxacin HCl) 500 Mg Tablet 500 Mg PO BID 4 Days Glyburide 2.5 Mg Tablet 2.5 Mg PO DAILY 30 Days Reported Tylenol Extra Strength (Acetaminophen) 500 Mg Tablet 1,000 Mg PO Q8H PRN Levothyroxine Sodium 150 Mcg Tablet 150 Mcg PO DAILY Lisinopril 40 Mg Tablet 40 Mg PO HS Gabapentin 100 Mg Capsule 100 Mg PO HS Assessment/Pt Instructions See instructions Discharge Planning: >30 minutes discharge planning Discharge Instructions Discharge Diet: ADA Diet Activity as Tolerated: Yes Discharge Physical Examination Vital Signs Vital Signs Date Time Temp Pulse Resp B/P (MAP) Pulse Ox O2 Delivery O2 Flow Rate FiO2 05/15/23 12:30 05/15/23 12:09 74 05/15/23 11:00 36.6 18 97 Room Air General Appearance: No Apparent Distress, Obese Respiratory: Lungs Clear, No Respiratory Distress Cardiovascular: Regular Rate, Rhythm, No Murmur Gastrointestinal: Normal Bowel Sounds, Soft Extremity: Normal Inspection, No Pedal Edema Skin: Normal Color, Warm/Dry Neurologic/Psychiatric: Alert, Normal Mood/Affect Allergies: Coded Allergies: Penicillins (Verified Allergy, Unknown, 05/12/23) Copy Copies To 1: CARLOS NEWBY MD Copies To 2: HUGO COOMBS DO Discharge Summary Date of Admission May 12, 2023 at 23:49 Date of Discharge May 15, 2023 at 14:15 Discharge Date: May 15, 2023 Discharge Time: 14:15 Admission Diagnosis Diverticulitis of the sigmoid colon Sepsis Discharge Diagnosis (1) Diverticulitis Status: Acute (2) Sepsis Status: Acute (3) Non-insulin dependent diabetes mellitus Status: Acute BRENDA DORMAN MD May 15, 2023 16:50
== END 2023-05-15 14:15 | disposition home or self-care (01) | DRG 872 ==
LOC: ER 20:25 → 4TH 23:49
PROVIDERS: ADMIT Family Medicine; ATTEND Internal Medicine
DX: A41.9 Sepsis, unspecified organism (principal); N39.0 Urinary tract infection, site not specified; K57.32 Diverticulitis of large intestine without perforation or abscess without bleeding; Z87.891 Personal history of nicotine dependence; E78.00 Pure hypercholesterolemia, unspecified; I10 Essential (primary) hypertension; E66.9 Obesity, unspecified; Z85.850 Personal history of malignant neoplasm of thyroid; Z85.820 Personal history of malignant melanoma of skin; Z92.21 Personal history of antineoplastic chemotherapy; Z92.3 Personal history of irradiation; E89.0 Postprocedural hypothyroidism; Z20.822 Contact with and (suspected) exposure to COVID-19; S70.02XA Contusion of left hip, initial encounter; W18.30XA Fall on same level, unspecified, initial encounter; J45.909 Unspecified asthma, uncomplicated; M25.552 Pain in left hip; M25.551 Pain in right hip; E11.40 Type 2 diabetes mellitus with diabetic neuropathy, unspecified; Z68.37 Body mass index [BMI] 37.0-37.9, adult
CPT/HCPCS: 36415; 71045; 71275; 72125; 72128; 72131; 73523; 74177; 80048; 80053; 80306; 80320; 81000; 82010; 82150; 82550; 82553; 82947; 83036; 83605; 83690; 83735; 83874; 84484; 85025; 85610; 85652; 85730; 86141; 87040; 87077; 87088; 87186; 87636; 93005; 93041; 96361; 96365; 96375; 96376

== ENCOUNTER 2023-06-20 05:39 | Outpatient (CLI) | payer MEDICARE ==
[~2023-06-20] VITALS: Ht 160 cm; Wt 97.3 kg
[~2023-06-20 05:39] MED LIST: ACET-2267 PO; CIPR-225 PO; GABA-486 PO; GLBR2.5T PO; LEVO150C4 PO; LEVO150T6 PO; LISI40TA9 PO; METF-399 PO; METR-145 PO; RT-ALBUINH INH
[2023-06-21] MEDS ORDERED: EMPA1TAB PO (08:16)
== END 2023-06-21 08:25 | disposition home or self-care (01) ==
LOC: PREOP 05:39
PROVIDERS: ATTEND Internal Medicine
DX: Z01.818 Encounter for other preprocedural examination (principal)

== ENCOUNTER → 2023-06-22 | Outpatient (CLI) | payer MEDICARE ==
[~2023-06-22] MED LIST changes: +EMPA1TAB PO
--- NOTE | 2023-06-22 11:02 | Diagnostic Imaging Report ---
PROCEDURE: US Gallbladder. TECHNIQUE: Multiple real-time grayscale images were obtained over the right upper quadrant in various projections. INDICATION: Right upper quadrant pain. FINDINGS: The liver has increased echogenicity. Portal vein is patent with hepatopetal flow. The gallbladder is clear with no stones or wall thickening. Common duct is not dilated. The pancreas, aorta and IVC are obscured by bowel gas. Right kidney measures 11.5 cm in length and appears normal. There is no ascites. IMPRESSION: Hepatic steatosis. Dictated by: Dictated on workstation # [id number]
== END ==
LOC: RAD 10:19
PROVIDERS: ATTEND Nurse Practitioner Family
DX: K76.0 Fatty (change of) liver, not elsewhere classified (principal)
CPT/HCPCS: 76705

== ENCOUNTER 2023-06-29 07:22 | Day surgery (SDC) | payer MEDICARE ==
[~2023-06-29] VITALS: Ht 160 cm; Wt 97.3 kg
[2023-06-29] MEDS ORDERED: LACTATED RINGERS 1,000 ML 1,000 ML IV STA (07:38)
[2023-06-29 07:45] VITALS: BP 143/71
--- NOTE | 2023-06-29 07:57 | Pre-Op Note & Conscious Sedat ---
Pre-Operative Progress Note Date H&P Reviewed: Jun 29, 2023 Time H&P Reviewed: 07:56 History & Physical: H&P Reviewed, Patient Examed, No changes noted Pre-Op Diagnosis: diverticulitis Moderate Sedation PreProcedure ASA Score 2 Airway Lungs Heart ASA score ASA 1: a normal healthy patient ASA 2: a patient with a mild systemic disease (mid diabetes, controlled hypertension, obesity ASA 3: a patient with a severe systemic disease that limits activity (angina, COPD, prior Myocardial infarction) ASA 4: a patient with an incapacitating disease that is a constant threat to life (CHF, renal failure) ASA 5: a moribund patient not expected to survive 24 hrs. (ruptured aneurysm) ASA 6: a declared brain- patient whose organs are being harvested. For emergent operations, add the letter E after the classification Mallampati Classification Grade 2 Sedation Plan Analgesia, Amnesia, Plan communicated to team members, Discussed options with patient/fam, Discussed risks with patient/fam The patient is an appropriate candidate to undergo the planned procedure, sedation, and anesthesia. The patient immediately re-assessed prior to indication. CARLOS LUCERO MD Jun 29, 2023 07:57
[2023-06-29 09:17] VITALS: BP 146/76
--- NOTE | 2023-06-29 09:17 | Progress Note-Post Operative ---
Post-Procedure Note Physician (s)/Plastic Panel Installer (s) Physician CARLOS LUCERO MD Pre-Procedure Diagnosis Pre-Procedure Diagnosis: diverticulitis Post-Procedure Diagnosis Post-operative diagnosis: Prior to undergoing colonoscopy digital rectal evaluation was performed. Anal sphincter tone was normal and the perianal reflexes intact. No abnormalities noted on digital inspection anal canal or distal rectal vault. The colonoscope was then inserted into the rectum and under direct physician advanced the cecum. The cecum was notified by the indication of the ileocecal valve and cecal strap. Photographic documentation was obtained. Careful inspection was made as the colonoscope withdrawn. Quality prep was fair there are few small areas of solid stool present predominantly hepatic flexure and proximal ascending colon elsewhere visualization was good. Findings there are no evidence for internal/external hemorrhoids. Present distal rectum was a 5 mm sessile polyp it was photographed and biopsied and ablated and submitted to pathology with no blood loss. Several small sigmoid diverticulum were present without evidence for diverticulitis. No other sigmoid colonic Abna's are appreciated. The descending colon splenic flexure unremarkable. There were some medium sized diverticulum scattered throughout the transverse colon more prominent proximally as well as the ascending colon with an unremarkable cecum and no evidence for diverticulitis. A/P 1. One 5 mm sessile polyp was removed via hot forceps from the distal rectum with no blood loss. Mild sigmoid diverticular disease and mild to moderate predominant proximal transverse colon and a sending: Diverticular disease is present without evidence for diverticulitis. We will advocate consideration for repeat surveillance colonoscopy in 5 years. CARLOS LUCERO MD Jun 29, 2023 09:17
[2023-06-29 09:20] VITALS: BP 147/82
[2023-06-29 09:42] VITALS: BP 147/82
--- NOTE | 2023-06-29 14:11 | Anesthesia-General Post-Op ---
MAC Patient Condition Mental Status/LOC: Same as Preop Cardiovascular: Satisfactory Nausea/Vomiting: Absent Respiratory: Satisfactory Pain: Controlled Complications: Absent Post Op Complications Complications None Follow Up Care/Instructions Patient Instructions None needed. Anesthesiology Discharge Order Discharge Order Patient was doing well after the procedure with no complaints, stable vital signs, no apparent adverse anesthesia problems. No complications reported per nursing. ZAID BATES DO Jun 29, 2023 14:11
--- NOTE | 2023-07-04 13:18 | HISTORY AND PHYSICAL ---
DATE OF PROCEDURE: 06/29/2023 HISTORY OF PRESENT ILLNESS: The patient is a 57-year-old white female seen for initial office visit 2 weeks after discharge from [facility] for diverticulitis with sepsis. She did grow E. coli from her urine; however, she did not have associated pyuria. She did have CT findings of diverticulitis involving the sigmoid colon without evidence of perforation. She had evidence for hepatic steatosis with no other abnormalities being noted on CT scan. She has minimal left lower quadrant abdominal cramping. At this point, has had returned to normal appetite with no diarrhea or constipation problems. She had one other colonoscopy, but she does not recall reveal any evidence for polyps, 7 years ago, done in [place]. She had recently moved to the area. PAST MEDICAL HISTORY: Significant for type 2 diabetes. When she was admitted, she was not taking any medication as she had felt that metformin was getting her blood sugar too low. She denied any other issues with the medicine, and they did send her home on 2.5 mg of glyburide, for which she denies any hypoglycemia. She comes in with a blood sugar log. The majority of her blood sugars are at bedtime around the 200 range. On review of her hospital labs, her glucose is 222 on admission and she was just started on sliding scale insulin with only requiring intermittent insulin as all of her blood sugars after that were under 200, predominantly in the 140-170 range, after meals and at bedtime. Her past medical history is also significant for multiple myeloma for which she reports that she has been in remission since 2017 with the diagnosis in 2015. PHYSICAL EXAMINATION: GENERAL: Reveals a white female, appeared to be in no acute distress, 5 feet 3 inches tall, 214 pounds, with blood pressure of 140/72. HEENT: Unremarkable. CHEST: Clear. CARDIOVASCULAR: Reveals a regular rate and rhythm without murmur, S3, or S4. EXTREMITIES: No cyanosis, clubbing or edema. She has pain over the base of the fourth MTP bilaterally without any evidence for skin breakdown. There is reported numbness, noting the left lower extremity from the calf down and on the right with reports of some intermittent back pain that will sometimes wake her up at night, radiating down into the left. Strength is 5+ and symmetrical of the lower extremities. No evidence for venous insufficiency, change. No significant skin lesions noted. ASSESSMENT AND PLAN: 1. History of diverticulitis, recent. We will schedule the patient for colonoscopy in the middle of June, 6 weeks essentially after the onset of her symptoms. 2. Type 2 diabetes. Discussed benefits of metformin alone. It will be unlikely to be causing hypoglycemia. We will initiate low dose at 500 mg daily with slow increase. She will be sent to the lab for an A1c level later this week and I will see her back in 2 months with a CBC and a CMP. 3. Multiple myeloma, reportedly on admission since 2016, no recurrence of symptoms. Her protein level was normal at 7.2 on hospital admission in a slightly dehydrated state. 4. Likely left lumbar radiculopathy. Instructed patient to increase gabapentin to 100 mg b.i.d. as she has noted benefit with taking 100 mg at bedtime. At the time of colonoscopy, we will need to discuss likely need for eye examination locally for a diabetic followup. Job ID: [id number] DocumentID: [id number] Dictated Date: 05/30/2023 17:48:23 It Support Manager Date: 05/30/2023 18:21:00 Dictated By: CARLOS LUCERO MD <Dictated by CARLOS LUCERO MD> <Electronically signed by CARLOS LUCERO MD> 06/01/23 0823 MTDD
== END 2023-06-29 09:53 | disposition home or self-care (01) ==
LOC: ENDO 07:22
PROVIDERS: ATTEND Internal Medicine
DX: K63.5 Polyp of colon (principal); K57.30 Diverticulosis of large intestine without perforation or abscess without bleeding; E11.9 Type 2 diabetes mellitus without complications; C90.00 Multiple myeloma not having achieved remission; E66.01 Morbid (severe) obesity due to excess calories; Z79.84 Long term (current) use of oral hypoglycemic drugs; Z68.38 Body mass index [BMI] 38.0-38.9, adult
CPT/HCPCS: 82947